=== PATIENT | female | born 1965 | race Caucasian/White ===

== ENCOUNTER 2018-04-14 11:51 | Emergency (ER) | payer SELFPAY ==
[~2018-04-14] VITALS: Wt 100.9 kg
[2018-04-14 11:54] VITALS: BP 131/84; PULSE 97; RESP 18
== END 2018-04-14 13:52 | disposition left against medical advice (07) ==
LOC: FTE 11:51
DX: Z53.21 Procedure and treatment not carried out due to patient leaving prior to being seen by health care provider (principal)